=== PATIENT | female | born 1995 | race Caucasian/White ===

== ENCOUNTER 2017-04-04 11:26 | Emergency (ER) | payer MEDICAID ==
[2017-04-04 11:42] VITALS: BP 118/69
--- NOTE | 2017-04-04 13:34 | EDM.PDOCBH ---
ED HPI GENERAL MEDICAL PROBLEM - General Chief Complaint: Behavioral/Psych Stated Complaint: EVAL Time Seen by Provider: 04/04/17 13:33 Source of Information: Reports: Patient, Family History Limitations: Reports: No Limitations - History of Present Illness INITIAL COMMENTS - FREE TEXT/NARRATIVE: pt arrived feeling very depressed and 1 week ago she was feeling quite suicdal. She recently broke up with her boyfriend and she has had increased stress at work Duration: Day(s):, Getting Worse Denies Pain Score (Numeric/FACES): 0 - Related Data Allergies Allergy/AdvReac Type Severity Reaction Status Date / Time amoxicillin [Amoxicillin] Allergy Hives Verified 04/04/17 11:53 amoxicillin trihydrate Allergy Hives Verified 04/04/17 11:53 [From Augmentin] cephalexin monohydrate Allergy Hives Verified 04/04/17 11:53 [From Keflex] potassium clavulanate Allergy Hives Verified 04/04/17 11:53 [From Augmentin] Sulfa (Sulfonamide Allergy Hives Verified 04/04/17 11:53 Antibiotics) Home Meds: Home Meds NK [No Known Home Meds] 02/21/16 [History] Past Medical History Gastrointestinal History: Reports: GERD Genitourinary History: Reports: UTI, Recurrent Psychiatric History: Reports: Anxiety, Depression, Eating Disorders, OCD, Panic Attack, Psych Hospitalization(s) Social & Family History - Tobacco Use Smoking Status *Q: Never Smoker Second Hand Smoke Exposure: No - Caffeine Use Caffeine Use: Reports: Soda - Alcohol Use Days Per Week of Alcohol Use: 0 - Recreational Drug Use Recreational Drug Use: No ED ROS GENERAL - Review of Systems Review Of Systems: See Below Constitutional: Reports: No Symptoms HEENT: Reports: No Symptoms Respiratory: Reports: No Symptoms Cardiovascular: Reports: No Symptoms Endocrine: Reports: No Symptoms GI/Abdominal: Reports: No Symptoms : Reports: No Symptoms Musculoskeletal: Reports: No Symptoms Skin: Reports: No Symptoms ED EXAM, BEHAVIORAL HEALTH - Physical Exam Exam: See Below Text/Narrative:: pt arrived with depression and feeling of hopelessness. Exam Limited By: No Limitations General Appearance: Alert, Anxious Ears: Normal TMs Nose: Normal Inspection Throat/Mouth: Normal Inspection Head: Atraumatic Neck: Normal Inspection Respiratory/Chest: No Respiratory Distress Cardiovascular: Regular Rate, Rhythm GI/Abdominal: Soft, Non-Tender (Female) Exam: Deferred Rectal (Female) Exam: Deferred Neurological: Alert, Normal Cognition Psychiatric: Alert, Restless, Tearful, Suicidal Thoughts COURSE, BEHAVIORAL HEALTH COMP - Course Vital Signs: Last Vital Signs Temp 36.9 C 04/04/17 11:52 Pulse 111 H 04/04/17 11:52 Resp 15 04/04/17 11:52 BP 118/69 04/04/17 11:52 Pulse Ox 99 04/04/17 11:52 Orders, Labs, Meds: Laboratory Tests 04/04/17 04/04/17 04/04/17 Range/Units 13:32 13:46 13:46 WBC 8.7 (4.5-11.0) K/uL RBC 4.94 (3.30-5.50) M/uL Hgb 14.5 (12.0-15.0) g/dL Hct 44.1 (36.0-48.0) % MCV 89 (80-98) fL MCH 29 (27-31) pg MCHC 33 (32-36) % Plt Count 308 (150-400) K/uL Neut % (Auto) 69 H (36-66) % Lymph % (Auto) 21 L (24-44) % [place] % (Auto) 8 H (2-6) % Eos % (Auto) 1 L (2-4) % Baso % (Auto) 1 (0-1) % Sodium 137 L (140-148) mmol/L Potassium 3.9 (3.6-5.2) mmol/L Chloride 102 (100-108) mmol/L Carbon Dioxide 28 (21-32) mmol/L Anion Gap 10.9 (5.0-14.0) mmol/L BUN 10 (7-18) mg/dL Creatinine 0.8 (0.6-1.0) mg/dL Est Cr Clr Drug Dosing 88.72 mL/min Estimated GFR (MDRD) > 60 (>60) Glucose 78 (74-106) mg/dL Calcium 9.2 (8.5-10.1) mg/dL Total Bilirubin 0.5 D (0.2-1.0) mg/dL AST 10 L (15-37) U/L ALT 16 (12-78) U/L Alkaline Phosphatase 69 (46-116) U/L Total Protein 8.2 (6.4-8.2) g/dL Albumin 4.2 (3.4-5.0) g/dL Globulin 4.0 H (2.3-3.5) g/dL Albumin/Globulin Ratio 1.1 L (1.2-2.2) Urine Color Urine Appearance Urine pH (4.5-8.0) Ur Specific [place] (1.008-1.030) Urine Protein (NEGATIVE) mg/dL Urine Glucose (UA) (NEGATIVE) mg/dL Urine Ketones (NEGATIVE) mg/dL Urine Occult Blood (NEGATIVE) Urine Nitrite (NEGATIVE) Urine Bilirubin (NEGATIVE) Urine Urobilinogen (NORMAL) mg/dL Ur Leukocyte Esterase (NEGATIVE) Urine RBC (0-5) Urine WBC (0-5) Ur Epithelial Cells Amorphous Sediment Urine Bacteria Urine Mucus Urine Opiates Screen (NEGATIVE) Ur Oxycodone Screen (NEGATIVE) Urine Methadone Screen (NEGATIVE) Ur Propoxyphene Screen (NEGATIVE) Ur Barbiturates Screen (NEGATIVE) Ur Tricyclics Screen (NEGATIVE) Ur Phencyclidine Scrn (NEGATIVE) Ur Amphetamine Screen (NEGATIVE) U Methamphetamines Scrn (NEGATIVE) Urine MDMA Screen (NEGATIVE) U Benzodiazepines Scrn (NEGATIVE) U Cocaine Metab Screen (NEGATIVE) U Marijuana (THC) Screen (NEGATIVE) Ethyl Alcohol < 3 mg/dL 04/04/17 04/04/17 Range/Units 14:22 14:22 WBC (4.5-11.0) K/uL RBC (3.30-5.50) M/uL Hgb (12.0-15.0) g/dL Hct (36.0-48.0) % MCV (80-98) fL MCH (27-31) pg MCHC (32-36) % Plt Count (150-400) K/uL Neut % (Auto) (36-66) % Lymph % (Auto) (24-44) % [place] % (Auto) (2-6) % Eos % (Auto) (2-4) % Baso % (Auto) (0-1) % Sodium (140-148) mmol/L Potassium (3.6-5.2) mmol/L Chloride (100-108) mmol/L Carbon Dioxide (21-32) mmol/L Anion Gap (5.0-14.0) mmol/L BUN (7-18) mg/dL Creatinine (0.6-1.0) mg/dL Est Cr Clr Drug Dosing mL/min Estimated GFR (MDRD) (>60) Glucose (74-106) mg/dL Calcium (8.5-10.1) mg/dL Total Bilirubin (0.2-1.0) mg/dL AST (15-37) U/L ALT (12-78) U/L Alkaline Phosphatase (46-116) U/L Total Protein (6.4-8.2) g/dL Albumin (3.4-5.0) g/dL Globulin (2.3-3.5) g/dL Albumin/Globulin Ratio (1.2-2.2) Urine Color Brown Urine Appearance Cloudy Urine pH 5.0 (4.5-8.0) Ur Specific [place] 1.025 (1.008-1.030) Urine Protein Negative (NEGATIVE) mg/dL Urine Glucose (UA) Normal (NEGATIVE) mg/dL Urine Ketones 15 H (NEGATIVE) mg/dL Urine Occult Blood Negative (NEGATIVE) Urine Nitrite Positive H (NEGATIVE) Urine Bilirubin Negative (NEGATIVE) Urine Urobilinogen Normal (NORMAL) mg/dL Ur Leukocyte Esterase Small (NEGATIVE) Urine RBC 0-5 (0-5) Urine WBC 5-10 H (0-5) Ur Epithelial Cells Moderate Amorphous Sediment Few Urine Bacteria Many Urine Mucus Few Urine Opiates Screen Negative (NEGATIVE) Ur Oxycodone Screen Negative (NEGATIVE) Urine Methadone Screen Negative (NEGATIVE) Ur Propoxyphene Screen Negative (NEGATIVE) Ur Barbiturates Screen Negative (NEGATIVE) Ur Tricyclics Screen Negative (NEGATIVE) Ur Phencyclidine Scrn Negative (NEGATIVE) Ur Amphetamine Screen Negative (NEGATIVE) U Methamphetamines Scrn Negative (NEGATIVE) Urine MDMA Screen Negative (NEGATIVE) U Benzodiazepines Scrn Negative (NEGATIVE) U Cocaine Metab Screen Negative (NEGATIVE) U Marijuana (THC) Screen Negative (NEGATIVE) Ethyl Alcohol mg/dL Medical Clearance: 04/04/17 16:16 pt arrived with increased depression after she broke up with her boyfriend. The crisis team saw her and a safety contract was signed. 04/04/17 16:17 an arms workr will be provided for her. Departure - Departure Time of Disposition: 16:18 Disposition: Home, Self-Care 01 Condition: Fair Clinical Impression: Borderline personality disorder - Discharge Information Instructions: Borderline Personality Disorder Referrals: Yareli Cabrera MD [Primary Care Provider] - Forms: ED Department Discharge Care Plan Goals: tc if increased problems
== END 2017-04-04 16:56 | disposition home or self-care (01) ==
LOC: JP.ED 11:26
DX: F60.3 Borderline personality disorder (principal); K21.9 Gastro-esophageal reflux disease without esophagitis; Z88.1 Allergy status to other antibiotic agents; Z88.2 Allergy status to sulfonamides; Z87.440 Personal history of urinary (tract) infections
CPT/HCPCS: 36415; 80053; 80305; 81001; 85025; 87086; 87088; 87186; 99285; G0480

== ENCOUNTER 2021-01-30 18:57 | Emergency (ER) | payer MEDICAID ==
[2021-01-30 19:19] VITALS: BP 124/76; PULSE 113
--- NOTE | 2021-01-30 20:05 | EDM.PDOCBH ---
ED HPI GENERAL MEDICAL PROBLEM - General Chief Complaint: Behavioral/Psych Stated Complaint: EVAL Time Seen by Provider: 01/30/21 19:45 Source of Information: Reports: Patient, Family History Limitations: Reports: No Limitations - History of Present Illness INITIAL COMMENTS - FREE TEXT/NARRATIVE: 25-year-old female with significant long-term depression, suicidal ideation and traumatic past history presents with 2 days of deepening depression and thoughts of suicide. She is on no medications at this time, she talked to her primary provider a week ago but according to the patient she is high risk for overdose so they did not start her on a medication at this time. She has been hospitalized in the past for psychiatric issues, her last hospitalization was for 3 months. She has extremely poor eye contact, is trembling, but is asking for help and is very willing to be hospitalized in fact asked her mom to bring her to the hospital. She has some serious issues she has never discussed before but she is "ready". According to the mother she has a history of cutting but none currently. Onset: Unknown/Unsure Duration: Chronic (Symptoms are chronic but acutely increased over the past 48 hours) Associated Symptoms: Reports: No Other Symptoms Headache Pain Score (Numeric/FACES): 2 - Related Data Allergies Allergy/AdvReac Type Severity Reaction Status Date / Time amoxicillin [Amoxicillin] Allergy Hives Verified 01/30/21 19:17 amoxicillin trihydrate Allergy Hives Verified 01/30/21 19:17 [From Augmentin] cephalexin monohydrate Allergy Hives Verified 01/30/21 19:17 [From Keflex] potassium clavulanate Allergy Hives Verified 01/30/21 19:17 [From Augmentin] Sulfa (Sulfonamide Allergy Hives Verified 01/30/21 19:17 Antibiotics) Home Meds: Home Meds NK [No Known Home Meds] 02/21/16 [History] Past Medical History Gastrointestinal History: Reports: GERD Genitourinary History: Reports: UTI, Recurrent C PROGRAMMER History: Reports: Other (See Below) Other C PROGRAMMER History: ovarian cysts Neurological History: Reports: Seizure, Other (See Below) Other Neuro History: persistent postural perceptual dizziness Psychiatric History: Reports: Anxiety, Depression, Eating Disorders, OCD, Panic Attack, Psych Hospitalization(s) - Infectious Disease History Infectious Disease History: Reports: None Social & Family History - Tobacco Use Tobacco Use Status *Q: Never Tobacco User Second Hand Smoke Exposure: No - Caffeine Use Caffeine Use: Reports: Soda - Recreational Drug Use Recreational Drug Use: No ED ROS GENERAL - Review of Systems Review Of Systems: See Below Constitutional: Denies: Fever, Chills HEENT: Denies: Vision Change Respiratory: Denies: Shortness of Breath Cardiovascular: Denies: Chest Pain GI/Abdominal: Denies: Nausea, Vomiting Skin: Reports: No Symptoms Neurological: Denies: Headache Psychiatric: Reports: Anxiety, Depression, Suicidal Ideation ED EXAM, BEHAVIORAL HEALTH - Physical Exam Exam: See Below Exam Limited By: No Limitations General Appearance: Alert, No Apparent Distress Eye Exam: Bilateral Eye: Normal Inspection Head: Atraumatic Neck: Supple, Non-Tender Respiratory/Chest: Lungs Clear Cardiovascular: Regular Rate, Rhythm, Tachycardia GI/Abdominal: Non-Tender Extremities: Normal Inspection Neurological: Alert, No Motor/Sensory Deficits, Oriented x 3, Other (Reflexes are hyperreflexic, patient is very anxious) Psychiatric: Depressed Mood, Flat Affect, Poor Eye Contact Skin Exam: Warm, Dry COURSE, BEHAVIORAL HEALTH COMP - Course Vital Signs: Last Vital Signs Temp 97.3 F 01/30/21 19:18 Pulse 113 H 01/30/21 19:18 Resp 16 01/30/21 19:18 BP 124/76 01/30/21 19:18 Pulse Ox 97 01/30/21 19:18 Orders, Labs, Meds: Laboratory Tests 01/30/21 01/30/21 01/30/21 Range/Units 20:08 20:09 20:09 WBC 9.0 (4.5-11.0) K/uL RBC 4.57 (3.30-5.50) M/uL Hgb 13.7 (12.0-15.0) g/dL Hct 41.2 (36.0-48.0) % MCV 90 (80-98) fL MCH 30 (27-31) pg MCHC 33 (32-36) % Plt Count 284 (150-400) K/uL Neut % (Auto) 70.1 H (36-66) % Lymph % (Auto) 21.2 L (24-44) % [place] % (Auto) 7.8 H (2-6) % Eos % (Auto) 0.7 L (2-4) % Baso % (Auto) 0.2 (0-1) % Sodium 140 (140-148) mmol/L Potassium 3.8 (3.6-5.2) mmol/L Chloride 103 (100-108) mmol/L Carbon Dioxide 25 (21-32) mmol/L Anion Gap 12.2 (5.0-14.0) mmol/L BUN 8 (7-18) mg/dL Creatinine 0.7 (0.6-1.0) mg/dL Est Cr Clr Drug Dosing 98.01 mL/min Estimated GFR (MDRD) > 60 (>60) Glucose 89 (74-106) mg/dL Calcium 8.9 (8.5-10.1) mg/dL Total Bilirubin 0.4 (0.2-1.0) mg/dL AST 12 L (15-37) U/L ALT 22 (12-78) U/L Alkaline Phosphatase 65 (46-116) U/L Total Protein 7.4 (6.4-8.2) g/dL Albumin 4.0 (3.4-5.0) g/dL Globulin 3.4 (2.3-3.5) g/dL Albumin/Globulin Ratio 1.2 (1.2-2.2) Urine Color (YELLOW) Urine Appearance (CLEAR) Urine pH (5.0-8.0) Ur Specific [place] (1.008-1.030) Urine Protein (NEGATIVE) mg/dL Urine Glucose (UA) (NEGATIVE) mg/dL Urine Ketones (NEGATIVE) mg/dL Urine Occult Blood (NEGATIVE) Urine Nitrite (NEGATIVE) Urine Bilirubin (NEGATIVE) Urine Urobilinogen (0.2-1.0) EU/dL Ur Leukocyte Esterase (NEGATIVE) Urine RBC (0-5) Urine WBC (0-5) Ur Epithelial Cells Amorphous Sediment Urine Bacteria Urine Mucus Urine HCG, Qual Urine Opiates Screen (NEGATIVE) Ur Oxycodone Screen (NEGATIVE) Urine Methadone Screen (NEGATIVE) Ur Propoxyphene Screen (NEGATIVE) Ur Barbiturates Screen (NEGATIVE) Ur Tricyclics Screen (NEGATIVE) Ur Phencyclidine Scrn (NEGATIVE) Ur Amphetamine Screen (NEGATIVE) U Methamphetamines Scrn (NEGATIVE) Urine MDMA Screen (NEGATIVE) U Benzodiazepines Scrn (NEGATIVE) U Cocaine Metab Screen (NEGATIVE) U Marijuana (THC) Screen (NEGATIVE) SARS CoV-2 RNA Rapid ELEONORA Negative 01/30/21 01/30/21 01/30/21 Range/Units 20:23 20:23 20:23 WBC (4.5-11.0) K/uL RBC (3.30-5.50) M/uL Hgb (12.0-15.0) g/dL Hct (36.0-48.0) % MCV (80-98) fL MCH (27-31) pg MCHC (32-36) % Plt Count (150-400) K/uL Neut % (Auto) (36-66) % Lymph % (Auto) (24-44) % [place] % (Auto) (2-6) % Eos % (Auto) (2-4) % Baso % (Auto) (0-1) % Sodium (140-148) mmol/L Potassium (3.6-5.2) mmol/L Chloride (100-108) mmol/L Carbon Dioxide (21-32) mmol/L Anion Gap (5.0-14.0) mmol/L BUN (7-18) mg/dL Creatinine (0.6-1.0) mg/dL Est Cr Clr Drug Dosing mL/min Estimated GFR (MDRD) (>60) Glucose (74-106) mg/dL Calcium (8.5-10.1) mg/dL Total Bilirubin (0.2-1.0) mg/dL AST (15-37) U/L ALT (12-78) U/L Alkaline Phosphatase (46-116) U/L Total Protein (6.4-8.2) g/dL Albumin (3.4-5.0) g/dL Globulin (2.3-3.5) g/dL Albumin/Globulin Ratio (1.2-2.2) Urine Color Yellow (YELLOW) Urine Appearance Slightly cloudy A (CLEAR) Urine pH 5.0 (5.0-8.0) Ur Specific [place] >= 1.030 (1.008-1.030) Urine Protein Negative (NEGATIVE) mg/dL Urine Glucose (UA) Negative (NEGATIVE) mg/dL Urine Ketones Negative (NEGATIVE) mg/dL Urine Occult Blood Trace-intact H (NEGATIVE) Urine Nitrite Positive H (NEGATIVE) Urine Bilirubin Negative (NEGATIVE) Urine Urobilinogen 0.2 (0.2-1.0) EU/dL Ur Leukocyte Esterase Negative (NEGATIVE) Urine RBC 0-5 (0-5) Urine WBC 0-5 (0-5) Ur Epithelial Cells Moderate Amorphous Sediment Not seen Urine Bacteria Moderate Urine Mucus Occasional Urine HCG, Qual Negative Urine Opiates Screen Negative (NEGATIVE) Ur Oxycodone Screen Negative (NEGATIVE) Urine Methadone Screen Negative (NEGATIVE) Ur Propoxyphene Screen Negative (NEGATIVE) Ur Barbiturates Screen Negative (NEGATIVE) Ur Tricyclics Screen Negative (NEGATIVE) Ur Phencyclidine Scrn Negative (NEGATIVE) Ur Amphetamine Screen Negative (NEGATIVE) U Methamphetamines Scrn Negative (NEGATIVE) Urine MDMA Screen Negative (NEGATIVE) U Benzodiazepines Scrn Negative (NEGATIVE) U Cocaine Metab Screen Negative (NEGATIVE) U Marijuana (THC) Screen Negative (NEGATIVE) SARS CoV-2 RNA Rapid ELEONORA Medications Discontinued Medications Generic Name Dose Route Start Last Admin Trade Name Freq PRN Reason Stop Dose Admin Acetaminophen 650 mg 01/30/21 21:58 01/30/21 22:04 Acetaminophen 325 Mg Tab, 50 Tab Bulk Bottle PO 01/30/21 21:59 Not Given NOW ONE Acetaminophen 650 mg 01/30/21 22:03 01/30/21 22:03 Acetaminophen 325 Mg Tab PO 01/30/21 22:04 650 mg NOW ONE Administration Acetaminophen Confirm 01/30/21 22:02 Acetaminophen 325 Mg Tab Administered 01/30/21 22:03 Dose 650 mg .ROUTE .STK-MED ONE Re-Assessment/Re-Exam: CBC, CMP, UA, urine drug screen and urine were obtained. Also a Covid for pre-placement. This patient needs inpatient stabilization and evaluation, is a very high risk for self-harm. Both the patient and the mother agree and are hoping for inpatient placement and evaluation. Patient's labs were reassuring, Covid was negative, negative, urine drug screen negative. Patient remained cooperative, she is medically cleared for inpatient evaluation and stabilization of suicidal ideation and depression. Awaiting to hear from facilities on acceptance. Patient was accepted at the [facility], [facility] in [place]. She will be transported by her mother and continued to be cooperative. Departure - Departure Time of Disposition: 22:47 Disposition: DC/Tfer to Other 70 Clinical Impression: Depressive disorder - Discharge Information Instructions: Living With Depression Referrals: Rosa Nielsen MD [Primary Care Provider] - Forms: ED Department Discharge Care Plan Goals: Go directly to the inpatient treatment center in [place] as discussed, for further evaluation and treatment. Sepsis Event Note (ED) - Evaluation Sepsis Screening Result: No Definite Risk - Focused Exam Vital Signs: Vital Signs Temp Pulse Resp BP Pulse Ox 01/30/21 19:18 97.3 F 113 H 16 124/76 97
[2021-01-30] MEDS ORDERED: Acetaminophen 325 MG Tab, 50 Tab Bulk Bottle PO ONE (21:58)
[2021-01-30] MEDS ORDERED: Acetaminophen 325 MG Tab ONE (22:02)
[2021-01-30] MEDS ORDERED: Acetaminophen 325 MG Tab PO ONE (22:03)
== END 2021-01-30 22:48 | disposition other institution (70) ==
LOC: JP.ED 18:57
DX: F32.9 Major depressive disorder, single episode, unspecified (principal); Z88.0 Allergy status to penicillin; Z88.1 Allergy status to other antibiotic agents; Z88.2 Allergy status to sulfonamides; Z20.822 Contact with and (suspected) exposure to COVID-19
CPT/HCPCS: 36415; 80053; 80305-QW; 81001; 81025; 85025; 99283; 99285; A9270-GY; U0002

== ENCOUNTER 2022-11-07 22:38 | Emergency (ER) | payer MEDICAID ==
[2022-11-07 22:55] VITALS: BP 97/76; PULSE 91
== END 2022-11-07 23:42 | disposition home or self-care (01) ==
LOC: JP.ED 22:38
DX: H61.23 Impacted cerumen, bilateral (principal); Z88.0 Allergy status to penicillin; Z88.1 Allergy status to other antibiotic agents; Z88.2 Allergy status to sulfonamides
CPT/HCPCS: 99283

== ENCOUNTER 2023-09-18 16:28 | Emergency (ER) | payer MEDICAID ==
[2023-09-18 17:42] VITALS: BP 105/70; PULSE 131
[2023-09-18 18:47] LABS: AMPHETAMINES SCREEN, URINE NEGATIVE (NEGATIVE); BARBITURATE SCREEN,URINE NEGATIVE (NEGATIVE); BENZODIAZEPINES SCREEN,URINE NEGATIVE (NEGATIVE); METHADONE SCREEN, URINE NEGATIVE (NEGATIVE); METHAMPHETAMINES SCREEN, URINE NEGATIVE (NEGATIVE); OXYCODONE SCREEN,URINE NEGATIVE (NEGATIVE); PROPOXYPHENE SCREEN,URINE NEGATIVE (NEGATIVE); THC SCREEN,URINE 50 NG/ML NEGATIVE (NEGATIVE)
== END 2023-09-18 18:51 | disposition home or self-care (01) ==
LOC: JP.ED 16:28
DX: G90.A Postural orthostatic tachycardia syndrome [POTS] (principal); Z88.0 Allergy status to penicillin; Z88.1 Allergy status to other antibiotic agents; Z88.2 Allergy status to sulfonamides
CPT/HCPCS: 36415; 80305-QW; 85018; 93010; 99283; 99284

== ENCOUNTER 2024-04-20 17:14 | Emergency (ER) | payer MEDICAID ==
[2024-04-20] MEDS ORDERED: Sodium Chloride 0.9% 10 ML Syringe FLUSH PRN (17:41)
[2024-04-20 17:55] LABS: BASOPHILS ABSOLUTE AUTO 0.05 K/uL (0.00-0.10); BASOPHILS PERCENT AUTO 0.4 % (0.1-1.3); EOSINOPHILS ABSOLUTE AUTO 0.13 K/uL (0.00-0.40); HEMATOCRIT 38.9 % (34.3-46.0); HEMOGLOBIN 13.6 g/dL (11.2-15.5); IMMATURE GRAN ABSOLUTE AUTO 0.02 K/uL (0.00-0.23); IMMATURE GRAN PERCENT AUTO 0.2 % (0.0-0.7); LYMPHOCYTES ABSOLUTE AUTO 2.75 K/uL (0.8-3.3); LYMPHOCYTES PERCENT AUTO 21.2 % (11.4-47.7); MEAN CORPUSCULAR HEMOGLOBIN 30.2 pg (31.6-35.5); MEAN CORPUSCULAR VOLUME 86.3 fL (81.4-99.0); MONOCYTES ABSOLUTE AUTO 0.91 K/uL (0.20-0.90); NEUTROPHILS ABSOLUTE AUTO 9.13 K/uL (1.0-7.6); NEUTROPHILS PERCENT AUTO 70.2 % (40.0-78.1); PLATELET COUNT,PLT 337 K/uL (130-375); RED BLOOD CELL COUNT 4.51 M/uL (3.77-5.24)
[2024-04-20 18:25] LABS: BLOOD UREA NITROGEN,BUN 10 mg/dL (7-18); CALCIUM 9.3 mg/dL (8.5-10.1); CARBON DIOXIDE,CO2 23 mmol/L (21-32); CHLORIDE,CL 103 mmol/L (100-108); CREATININE 0.9 mg/dL (0.6-1.0); EST CRCL DRUG DOSING (CG) 74.26 mL/min; ESTIMATED GFR 90 mL/min (>60); GLUCOSE RANDOM 89 mg/dL (74-106); POTASSIUM,K 3.6 mmol/L (3.6-5.2); SODIUM,NA 138 mmol/L (140-148); TSH ULTRASENSITIVE 1.527 uIU/mL (0.358-3.740)
[2024-04-20 18:26] LABS: ANION GAP 15.6 mmol/L (5.0-14.0); TROPONIN I HIGH SENSITIVITY < 4.0 pg/mL (<=60.3)
[2024-04-20 18:26] LABS: CORONAVIRUS COVID-19 NAA NEGATIVE (NEGATIVE); INFLUENZA A NAA NEGATIVE (NEGATIVE); INFLUENZA B NAA NEGATIVE (NEGATIVE); RESPIRATORY SYNCYTIAL VIR NAA NEGATIVE (NEGATIVE)
[2024-04-20] MEDS: Iopamidol 755 Mg/ML 100 ML Bottle IV SCH (19:23)
[2024-04-20] MEDS: Sodium Chloride 0.9% 100 ML IV SCH (19:23)
[2024-04-20 20:15] VITALS: BP 110/67; PULSE 101
== END 2024-04-20 20:42 | disposition home or self-care (01) ==
LOC: JP.ED 17:14
DX: R07.89 Other chest pain (principal); Z88.2 Allergy status to sulfonamides; Z88.8 Allergy status to other drugs, medicaments and biological substances; Z88.0 Allergy status to penicillin
CPT/HCPCS: 0241U; 36415; 71046; 71275; 80048; 84443; 84484; 85025; 85379; 93005; 99285; J3490; Q9967; 93010; 99284

== ENCOUNTER 2024-05-01 10:44 | Emergency (ER) | payer MEDICAID ==
[2024-05-01 10:54] VITALS: BP 157/82; PULSE 122
== END 2024-05-01 12:19 | disposition left against medical advice (07) ==
LOC: JP.ED 10:44
DX: Z53.21 Procedure and treatment not carried out due to patient leaving prior to being seen by health care provider (principal)

== ENCOUNTER 2024-08-30 18:09 | Emergency (ER) | payer MEDICARE, MEDICAID ==
[2024-08-30 18:24] VITALS: BP 151/88; PULSE 116
[2024-08-30] MEDS: Methocarbamol 500 MG Tab PO ONE (19:29)
== END 2024-08-30 19:35 | disposition home or self-care (01) ==
LOC: JP.ED 18:09
DX: M99.02 Segmental and somatic dysfunction of thoracic region (principal); Z88.0 Allergy status to penicillin; Z88.2 Allergy status to sulfonamides; Z88.8 Allergy status to other drugs, medicaments and biological substances; Z79.899 Other long term (current) drug therapy
CPT/HCPCS: 99283; A9270-GY